=== PATIENT | female | born 1995 | race Caucasian/White ===

== ENCOUNTER → 2020-12-12 | Day surgery (SDC) | payer MEDICARE, OTHER ==
[~2020-12-12] VITALS: Ht 152.4 cm; Wt 128.0 kg
[~2020-12-12] MED LIST: ADVAIR 100-501 EACH INH; ADVAIR HFA 115-28 GM INH; IBUPROFEN400 MG PO; MEDROL 4MG DOSEP4 MG PO; PERCOCET 5-3251 EACH PO; PREDNISONE 20MG20 MG PO; SINGULAIR10 MG PO; VENTOLIN (2.5 MG/3 M INH; ZYRTEC10 MG PO
[2020-12-12 11:01] LABS: HCG (URINE) SCREEN NEGATIVE (NEGATIVE)
== END | disposition home or self-care (01) ==
LOC: FAS 10:36
PROVIDERS: Anesthesiology
DX: K02.9 Dental caries, unspecified (principal); K01.1 Impacted teeth; J45.909 Unspecified asthma, uncomplicated; Z98.51 Tubal ligation status; F41.9 Anxiety disorder, unspecified; Z88.8 Allergy status to other drugs, medicaments and biological substances; K21.9 Gastro-esophageal reflux disease without esophagitis
CPT/HCPCS: 84703; J1100; J2250; J2405; J2704; J3010